=== PATIENT | female | born 1955 | race African-American/Black ===

== ENCOUNTER 2023-12-08 07:58 | Inpatient (IN) | payer MEDICAID, OTHER ==
[~2023-12-08] VITALS: Ht 167.6 cm; Wt 82.1 kg
[2023-12-08] MEDS ORDERED: ASPIRIN 325MG EC TABLET PO ONE (08:15)
[2023-12-08 08:46] LABS: BASOPHILS % 0.4 % (0.0-2.0); EOSINOPHILS % 3.6 % (0.0-5.0); HEMATOCRIT. 33.7 % (36.0-48.0); HEMOGLOBIN. 10.8 g/dL (12.0-16.0); LYMPHOCYTES % 39.4 % (20.0-50.0); MEAN CORPUSCULAR HEMOGLOBIN 26.6 pg (28.0-32.0); MEAN CORPUSCULAR HGB CONC 32.1 g/dL (31.0-37.0); MEAN PLATELET VOLUME 8.5 fl (7.4-10.4); NEUTROPHILS % 47.6 % (40.0-76.0); PLATELET 257 x1000/uL (130-400); RED BLOOD CELL COUNT 4.06 mill/uL (4.2-5.4); RED CELL DISTRIBUTION WIDTH 14.8 % (11.6-14.6); WHITE BLOOD COUNT 5.8 x1000/uL (4.5-11.0)
[2023-12-08] MEDS: ASPIRIN 325MG EC TABLET PO ONE (08:55)
[2023-12-08 08:56] LABS: INR 0.9; PROTHROMBIN TIME 10.4 sec (9.6-11.0)
[2023-12-08 09:14] LABS: ALANINE AMINOTRANSFERASE 13 IU/L (10-49); ASPARTATE AMINOTRANSFERASE 16 IU/L (<34); BILIRUBIN TOTAL 0.2 mg/dL (0.1-1.0); CALCIUM 8.6 mg/dL (8.7-10.4); CARBON DIOXIDE 23 mEq/L (21-32); CHLORIDE 105 mEq/L (98-107); CREATININE 0.9 mg/dL (0.6-1.0); GLUCOSE 163 mg/dL (70-105); POTASSIUM 4.1 mEq/L (3.5-5.1); PROTEIN TOTAL 7.1 g/dL (6.0-8.3); SODIUM 135 mEq/L (136-145); THYROID STIMULATING HORMONE 3.79 uIU/mL (0.55-4.78); TROPONIN I HIGH SENSITIVITY 4 ng/L (3.0-34); UREA NITROGEN BLOOD 16 mg/dL (9-23)
[2023-12-08 09:22] LABS: ETHANOL BLOOD < 10 mg/dL (<10)
[2023-12-08] MEDS: CLOPIDOGREL 75MG TABLET PO ONE (09:52)
[2023-12-08] MEDS: ATORVASTATIN CALCIUM 40MG TABLET PO SCH (09:52)
[2023-12-08 10:13] LABS: CLARITY URINE CLEAR (CLEAR); COLOR URINE YELLOW (YELLOW); GLUCOSE URINE NEGATIVE (NEGATIVE); KETONES URINE NEGATIVE (NEGATIVE); LEUKOCYTE ESTERASE URINE NEGATIVE (NEGATIVE); NITRITE URINE NEGATIVE (NEGATIVE); OCCULT BLOOD URINE NEGATIVE (NEGATIVE); PH URINE 6.5 (4.5-8.0); PROTEIN URINE NEGATIVE (NEGATIVE); SPECIFIC GRAVITY URINE 1.025 (1.005-1.030); UROBILINOGEN URINE 0.2 E.U./dL (0.2-1.0)
[2023-12-08 11:20] LABS: *AMPHETAMINES SCREEN URINE NEGATIVE (NEGATIVE); *BARBITURATES SCREEN URINE NEGATIVE (NEGATIVE); *BENZODIAZEPINES SCREEN URINE NEGATIVE (NEGATIVE); *COCAINE SCREEN URINE NEGATIVE (NEGATIVE); CANNABINOID URINE SCREEN NEGATIVE (NEGATIVE); ECSTASY MDMA SCREEN URINE NEGATIVE (NEGATIVE); METHADONE URINE SCREEN Neg (NEGATIVE); OPIATES URINE SCREEN NEGATIVE (NEGATIVE); PHENCYCLIDINE URINE SCREEN NEGATIVE (NEGATIVE)
[2023-12-08] MEDS: IOHEXOL-350 100 ML BOTTLE ONE (12:29)
[2023-12-08] MEDS ORDERED: ACETAMINOPHEN 325MG TABLET PO PRN (18:15)
[2023-12-08 18:16] VITALS: BP 132/59; PULSE 72; RESP 18; TEMP 98.1
[2023-12-08 19:30] VITALS: BP 132/59; PULSE 72; RESP 18; TEMP 98.1
[2023-12-08 20:00] VITALS: BP 128/58; PULSE 64; RESP 18; TEMP 96.4
[2023-12-08] MEDS: ENOXAPARIN 40MG/0.4ML SYR SUBCUT SCH (20:22)
[2023-12-09] VITALS: BP 99/44; PULSE 71; RESP 18; TEMP 98.1
[2023-12-09 04:00] VITALS: BP 100/55; PULSE 65; RESP 20; TEMP 97.5
[2023-12-09 05:56] LABS: BASOPHILS % 0.5 % (0.0-2.0); HEMATOCRIT. 32.2 % (36.0-48.0); HEMOGLOBIN. 10.7 g/dL (12.0-16.0); LYMPHOCYTES % 41.2 % (20.0-50.0); MEAN CORPUSCULAR HEMOGLOBIN 26.8 pg (28.0-32.0); MEAN CORPUSCULAR HGB CONC 33.3 g/dL (31.0-37.0); MEAN CORPUSCULAR VOLUME 80.5 fL (81.0-99.0); MEAN PLATELET VOLUME 9.3 fl (7.4-10.4); MONOCYTES % 8.3 % (2.0-8.0); PLATELET 273 x1000/uL (130-400); RED BLOOD CELL COUNT 4.01 mill/uL (4.2-5.4); RED CELL DISTRIBUTION WIDTH 14.6 % (11.6-14.6); WHITE BLOOD COUNT 5.4 x1000/uL (4.5-11.0)
[2023-12-09 06:10] LABS: ALANINE AMINOTRANSFERASE 11 IU/L (10-49); ALBUMIN 3.8 g/dL (3.2-4.8); ASPARTATE AMINOTRANSFERASE 14 IU/L (<34); BILIRUBIN TOTAL 0.3 mg/dL (0.1-1.0); CALCIUM 9.1 mg/dL (8.7-10.4); CARBON DIOXIDE 25 mEq/L (21-32); CHLORIDE 105 mEq/L (98-107); CHOLESTEROL 182 mg/dL (<200); CREATININE 0.7 mg/dL (0.6-1.0); GLUCOSE 169 mg/dL (70-105); HDL CHOLESTEROL 37 mg/dL (>65); LDL CHOLESTEROL 108 mg/dL (5-100); POTASSIUM 4.2 mEq/L (3.5-5.1); PROTEIN TOTAL 6.4 g/dL (6.0-8.3); SODIUM 140 mEq/L (136-145); TRIGLYCERIDE 251 mg/dL (0-150); UREA NITROGEN BLOOD 15 mg/dL (9-23)
[2023-12-09 06:45] LABS: HEPATITIS B SURFACE ANTIGEN NEGATIVE (Negative); HEPATITIS C AB NON REACTIVE (Neg) (Negative)
[2023-12-09] MEDS ORDERED: DEXTROSE 50% WATER 50ML SYRINGE IV PRN (07:30)
[2023-12-09] MEDS: BLOOD SUGAR DIAGNOSTIC STRIP TEST SCH (07:42)
[2023-12-09 08:00] VITALS: BP 120/47; PULSE 68; RESP 20; TEMP 97.4
[2023-12-09] MEDS: CLOPIDOGREL 75MG TABLET PO SCH (08:40)
[2023-12-09] MEDS: ASPIRIN 81MG EC TABLET PO SCH (08:41)
[2023-12-09] MEDS: INSULIN LISPRO 100 UNITS/ML SUBCUT SCH (08:41)
[2023-12-09] MEDS: SODIUM CHLORIDE 0.9% 250 ML IV ONE (09:35)
[2023-12-09 12:00] VITALS: BP 144/102; PULSE 64; RESP 19; TEMP 97.2
[2023-12-09 16:00] VITALS: BP 174/79; PULSE 64; RESP 20; TEMP 98.4
[2023-12-09 20:00] VITALS: BP 108/46; PULSE 77; RESP 18; TEMP 97.4
[2023-12-09] MEDS: ATORVASTATIN CALCIUM 40MG TABLET PO SCH (21:55)
[2023-12-10] VITALS: BP 117/54; PULSE 75; RESP 18; TEMP 97.9
[2023-12-10 04:00] VITALS: BP 117/54; PULSE 71; RESP 18; TEMP 97.7
[2023-12-10] MEDS ORDERED: ASPI-1497 MT (13:23)
[2023-12-10] MEDS ORDERED: CLOP-31 MT (13:23)
[2023-12-10] MEDS ORDERED: ATOR80TA MT (13:23)
[2023-12-10 13:47] VITALS: BP 130/64; PULSE 65; TEMP 97.6; O2SAT 98
== END 2023-12-10 14:15 | disposition home or self-care (01) | DRG 66 ==
LOC: ER 07:58 → 7WST 13:51 → EDBEDREQTM 14:09 → EDBEDREQSVC 14:09 → EDBEDREQ 14:09
PROVIDERS: ADMIT Internal Medicine; ATTEND Internal Medicine
DX: I63.81 Other cerebral infarction due to occlusion or stenosis of small artery (principal); E11.9 Type 2 diabetes mellitus without complications; E03.9 Hypothyroidism, unspecified; E78.00 Pure hypercholesterolemia, unspecified; I10 Essential (primary) hypertension; E66.9 Obesity, unspecified; Z68.33 Body mass index [BMI] 33.0-33.9, adult
CPT/HCPCS: 36415; 70496; 70498; 70551; 71045; 80053; 80061; 80305; 80320; 81003; 82962; 83036; 84439; 84443; 84484; 85025; 86705; 87340; 93005; 93306; 93880; 97162; 97166; 99291; J1650; J1815; Q9967; G0480